=== PATIENT | female | born 1960 | race Hispanic/Latino ===

== ENCOUNTER 2021-03-31 18:38 | Emergency (ER) | payer SELFPAY ==
[2021-03-31 18:47] VITALS: BP 131/54
[2021-03-31] MEDS ORDERED: ONDANSETRON 4 MG/2 ML INJ IV ONE (19:00)
[2021-03-31] MEDS ORDERED: LIDOCAINE 2% UROJECT 10 ML JELLY UR ONE (19:00)
[2021-03-31] MEDS ORDERED: MORPHINE 4 MG/1 ML INJ IV ONE (19:02)
--- NOTE | 2021-03-31 19:06 | Event Note ---
ED Screening Note Date of service: 03/31/21 Time: 19:04 ED Screening Note: Patient is a 61-year-old female with a history of chronic internal hemorrhoids presents to the ED with acute onset persistent severe rectal and lower abdominal pain, nausea, chest pain or shortness of breath for the last 2 days. Patient states that she initially started experiencing these symptoms 5 days ago and noticed that she had constipation when she had bowel movement. Patient states that in the last 8 hours, the pain in her rectum got worse after having a bowel movement which she describes as hard. Patient states that thereafter she started having chest pain, shortness of breath, lightheadedness and nausea. Patient denies fever, chills, dysuria, urinary frequency and urgency, hematochezia, rectal bleeding, hematemesis, vomiting, dysuria, vaginal bleeding or low back pain. This initial assessment/diagnostic orders/clinical plan/treatment(s) is/are subject to change based on patients health status, clinical progression and re- assessment by fellow clinical providers in the ED. Further treatment and workup at subsequent clinical providers discretion. Patient/guardian urged not to elope from the ED as their condition may be serious if not clinically assessed and managed. Initial orders include: CBC, CMP, EKG, lipase, troponin, chest x-ray, abdomen pelvis CT scan with contrast, UA
--- NOTE | 2021-03-31 19:45 | XRay Report ---
XR chest 1V ap INDICATION / CLINICAL INFORMATION: CHEST PAIN. COMPARISON: None available. FINDINGS: SUPPORT DEVICES: None. HEART /PULMONARY VASCULATURE: No significant abnormality. LUNGS / PLEURA: No significant pulmonary or pleural abnormality. No pneumothorax. ADDITIONAL FINDINGS: No significant additional findings. IMPRESSION: 1. No acute findings. Signer Name: Humberto Martinez MD Signed: 03/31/2021 7:40 PM Workstation Name: [id number]
[2021-03-31 20:31] LABS: Alanine Aminotransferase 13 units/L (7-56); Albumin 4.5 g/dL (3.9-5); Blood Urea Nitrogen 7 mg/dL (7-17); Calcium 9.3 mg/dL (8.4-10.2); Hemolysis Index 5
[2021-03-31 20:32] LABS: BUN/Creatinine Ratio 12
[2021-03-31 20:53] LABS: Basophils % (Auto) 0.6 % (0.0-1.8); Eosinophils % (Auto) 0.7 % (0.0-4.3); Hematocrit 36.6 % (30.3-42.9); Hemoglobin 12.9 gm/dl (10.1-14.3); Lymphocytes # (Auto) 1.1 K/mm3 (1.2-5.4); Lymphocytes % (Auto) 20.3 % (13.4-35.0); Mean Corpuscular HGB Conc 35 % (30-34); Mean Corpuscular Volume 96 fl (79-97); Monocytes # (Auto) 0.5 K/mm3 (0.0-0.8); Platelet Count 198 K/mm3 (140-440); Red Cell Distribution Width 12.5 % (13.2-15.2)
--- NOTE | 2021-03-31 23:49 | Emergency Department Report ---
ED Chest Pain HPI - General Chief Complaint: Chest Pain Stated Complaint: CHEST PAIN Time Seen by Provider: 03/31/21 19:51 Source: patient Mode of arrival: Ambulatory Limitations: No Limitations - History of Present Illness Initial Comments: 61-year-old female presents to ED with complaint of chest pain and shortness of breath. Patient states she has been having issues with constipation. 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 Patient reports today she had a bowel movement and had to strain. Patient reports her bowel movements have been painful. She states during the bowel movement, the pain radiated from her rectum to her back and chest. Patient states afterward, she felt short of breath and dizzy. Patient states her symptoms have now resolved. She denies any cough, fever, leg pain or swelling. MD Complaint: chest pain, other (Shortness of breath) -: This evening Onset: other (After having to strain during bowel movement) Pain Location: substernal Severity: moderate Severity scale (0 -10): 9 Quality: aching Consistency: now resolved Improves With: nothing Worsens With: nothing re: dyspnea. denies: nausea, vomting, diaphoresis Other Symptoms: other (Reports near syncope). denies: cough, fever, syncope, leg swelling - Related Data Previous Rx's Medication Instructions Recorded Last Taken Type Docusate Sodium [Colace] 100 mg PO BID #30 capsule 04/01/21 Unknown Rx Allergies Allergy/AdvReac Type Severity Reaction Status Date / Time No Known Allergies Allergy Verified 03/31/21 18:45 Heart Score - HEART Score History: Slightly suspicious EKG: Normal Age: 45-65 Risk factors: No known risk factors Troponin: < normal limit HEART Score: 1 - EKG Read Time Time EKG Completed: 00:26 EKG Read Time: 00:31 ED Review of Systems ROS: Stated complaint: CHEST PAIN Other details as noted in HPI Comment: All other systems reviewed and negative Constitutional: denies: chills, fever Respiratory: shortness of breath. denies: cough Cardiovascular: chest pain Gastrointestinal: constipation. denies: nausea, vomiting, diarrhea Musculoskeletal: other (Denies leg pain or swelling) ED Past Medical Hx - Past Medical History Previous Medical History?: No - Surgical History Past Surgical History?: No - Medications Home Medications: Home Medications Medication Instructions Recorded Confirmed Last Taken Type Docusate Sodium [Colace] 100 mg PO BID #30 capsule 10/07/21 Unknown Rx ED Physical Exam - General Limitations: No Limitations General appearance: alert, in no apparent distress - Head Head exam: Present: atraumatic, normocephalic - Eye Eye exam: Present: normal appearance, EOMI - ENT ENT exam: Present: mucous membranes moist - Neck Neck exam: Present: normal inspection - Respiratory Respiratory exam: Present: normal lung sounds bilaterally. Absent: respiratory distress - Cardiovascular Cardiovascular Exam: Present: regular rate, normal rhythm - GI/Abdominal GI/Abdominal exam: Present: soft. Absent: distended, tenderness - Extremities Exam Extremities exam: Present: normal inspection. Absent: pedal edema, calf tenderness - Neurological Exam Neurological exam: Present: alert, oriented X3 - Psychiatric Psychiatric exam: Present: normal affect, normal mood - Skin Skin exam: Present: warm, dry, intact, normal color ED Course Vital Signs 03/31/21 03/31/21 18:45 19:27 Temperature 97.6 F Pulse Rate 91 H Respiratory 20 30 H Rate Blood Pressure 131/54 O2 Sat by Pulse 100 Oximetry ED Medical Decision Making - Lab Data Result diagrams: 03/31/21 19:54 03/31/21 19:54 - EKG Data -: EKG Interpreted by Ca EKG shows normal: sinus rhythm, axis, intervals, QRS complexes, ST-T waves Rate: normal - EKG Data Interpretation: no acute changes - Radiology Data Radiology results: report reviewed, image reviewed - Medical Decision Making 61-year-old female presents to ED with chest pain or shortness of breath after straining while on the toilet. Symptoms now resolved. EKG is normal. Troponin is negative x2. D-dimer is normal. Chest x-ray is unremarkable. O2 sats are normal, patient is in no respiratory distress, lungs are clear. Remainder of labs are unremarkable except for sodium. Patient has moderate hyponatremia, however it seems to be asymptomatic. No headache, nausea, vomiting, dizziness, confusion, muscle cramps. No previous sodium level available for comparison. Patient advised to follow-up with her PCP for further work-up on sodium level. Patient will be discharged at this time with prescription for Colace. Return pr ecautions given. - Differential Diagnosis Vasovagal reaction, ACS, pneumonia, PE Critical care attestation.: If time is entered above; I have spent that time in minutes in the direct care of this critically ill patient, excluding procedure time. ED Disposition Clinical Impression: Chest pain, Dyspnea, Constipation, Hyponatremia Disposition: 01 HOME / SELF CARE / HOMELESS Is pt being admited?: No Condition: Stable Instructions: Shortness of Breath, Adult, [id number], Sodium Test, Nonspecific Chest Pain, Adult, Constipation, Adult Additional Instructions: Your sodium level is slightly low today. You need to follow-up with your regular doctor to monitor this. Prescriptions: Docusate Sodium [Colace] 100 mg PO BID #30 capsule Referrals: [facility] [Provider Group] - 3-5 Days PRIMARY CARE, [Referring] - 3-5 Days JW HOFFMAN MD [Staff Physician] - 3-5 Days MARIA GOMEZ MD [Staff Physician] - 3-5 Days Time of Disposition: 00:33 Print Language: GREEK
--- NOTE | 2021-04-01 10:36 | Electrocardiograph Report ---
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
== END 2021-04-01 00:59 | disposition home or self-care (01) ==
LOC: ED 18:38
DX: E07.89 Other specified disorders of thyroid (principal); E87.1 Hypo-osmolality and hyponatremia; K59.00 Constipation, unspecified; Z79.899 Other long term (current) drug therapy
CPT/HCPCS: 36415; 71045; 80053; 83690; 84484; 85025; 85379; 93005; 96374; 96375; 99284; J2270; J2405